=== PATIENT | female | born 2000 | race Two or more races ===

== ENCOUNTER 2023-11-25 00:47 | Emergency (ER) | payer OTHER | END 2023-11-25 03:03 | disposition home or self-care (01) | LOC: CSHERS 00:47 | DX: O99.891 Other specified diseases and conditions complicating pregnancy (principal); R06.02 Shortness of breath; Z3A.28 28 weeks gestation of pregnancy; Z75.3 Unavailability and inaccessibility of health-care facilities | CPT/HCPCS: 93005 ==